=== PATIENT | female | born 1975 | race Caucasian/White ===

== ENCOUNTER 2016-09-26 10:06 | Emergency (ER) | payer SELFPAY ==
[2016-09-26 13:41] VITALS: BP 125/80
--- NOTE | 2016-09-27 00:19 | Diagnostic Imaging Report ---
[facility] [address] [facility].[address] [address] ~ ~ ~ ~ Report Submission Date: Sep 26, 2016 11:53:42 AM CIRCULATING NURSE Patient ~ Study Name: NIKHIL RIVERA ~ Date: Sep 26, 2016 11:39:46 AM CIRCULATING NURSE ~ Modality Type: CR Gender: F ~ Description: SPINE : 77 ~ Institution: [facility] Physician: AMBER JARAMILLO ~ ~ ~ ~ Lumbar spine 3 views Clinical history: Back pain Comparison: October 06, 2012 Technique AP lateral cone down lumbosacral junction Findings: The disc and vertebral body height are normal. No fracture is identified. The sacrum is unremarkable. The normal lumbar lordotic curve is straightened. Surgical clips are present in the right upper quadrant of the abdomen. Impression: Straightening of the normal lumbar lordotic curve suggesting muscle spasm stable from the previous radiographs No acute lumbar spine pathology ~ Electronically signed on Sep 26, 2016 11:53:42 AM CIRCULATING NURSE by: Quinn GOODSON
--- NOTE | 2016-09-27 03:30 | ED Physician Documentation ---
Low Back Pain - HISTORIAN Historian: patient - HPI Stated Complaint: low back pain after lifting a box at work Chief Complaint: Low Back Pain/ Injury Additional Information: lifted box, felt pop Onset: days ago (3) Duration: continues in ED Recent Injury: Yes Context: lifting Where: work Other Injuries: other (none) Severity: moderate Quality: sharp Front/Back of Body, Lg (Color): 1 - pain Worsened By:: movement to RT flexion, movement to LT flexion Relieved By: remaining still Further Comments: no - ROS CONST: no problems CVS/RESP: none EYES/ENT: none MS/SKIN/LYMPH: leg pain Neuro/Psych: none GI/: denies: abdominal pain, black stools - PAST HX Past History: other (hypothyroidism) Surgeries/Procedures: BTL Immunizations: referred to PCP Allergies/Adverse Reactions: Allergies Allergy/AdvReac Type Severity Reaction Status Date / Time sulfamethoxazole Allergy Verified 09/26/16 13:42 [From Bactrim] trimethoprim [From Bactrim] Allergy Verified 09/26/16 13:42 - SOCIAL HX Smoking History: non-smoker Alcohol Use: none Drug Use: none - FAMILY HX Family History: no significant history - VITAL SIGNS Vital Signs: Vital Signs Temp Pulse Resp BP Pulse Ox 97.9 F 76 18 125/80 100 09/26/16 13:34 09/26/16 13:34 09/26/16 13:34 09/26/16 13:34 09/26/16 13:34 - REVIEWED ASSESSMENTS Nursing Assessment Reviewed: Yes Vitals Reviewed: Yes Progress - Results/Orders Results/Orders: L-spine x-ray ordered - Progress Progress: pt. stable entire time in er Critical Care Note - Critical Care Note Total Time (mins): 0 ED Results Lab/Radiology - Lab Results Lab Results: none ordered - Radiology Radiology Impressions: x-ray l-spine pos for spasm/straightening - Orders Orders: ED Orders Category Date Time Status L SPINE 2 OR 3 VIEWS [RAD] Stat Exams 09/26/16 Completed Low Back Pain/Injury - Physical Exam General Appearance: alert, moderate distress EENT: eye inspection normal, ENT inspection normal, pharynx normal, no signs of dehydration, SHASHA, no nystagmus, TM's nml Neck: non-tender, painless ROM, trachea midline Resp/CVS: chest non-tender, breath sounds nml, heart sounds nml, no resp. distress, lungs clear, reg. rate & rhythm Abdomen: non-tender, no organomegaly, no pulsatile mass Back: vertebral point-tendernes (L4,5), CVA tenderness (lumbar area) Straight Leg Raising: Positive Left, Positive Right Neuro/Psych: oriented x3, motor nml, sensation nml, bilat. doriflexion nml, reflexes nml Skin: warm/dry, normal color Extremities: non-tender, normal range of motion, no evidence of injury, no edema Discharge Clincal Impression: Lumbar strain Qualifiers: Encounter type: initial encounter Qualified Code(s): S39.012A - Strain of muscle, fascia and tendon of lower back, initial encounter Referrals: Kristin Conway MD [Primary Care Provider] - 2 Days Comments: discharged home with scripts Condition: Stable Disposition: 01 HOME, SELF-CARE Decision to Admit: NO Decision Time: 13:30
== END 2016-09-26 12:10 | disposition home or self-care (01) ==
LOC: ED 10:06
DX: S39.012A Strain of muscle, fascia and tendon of lower back, initial encounter (principal); X50.1XXA Overexertion from prolonged static or awkward postures, initial encounter; Y99.0 Civilian activity done for income or pay; Y93.9 Activity, unspecified
CPT/HCPCS: 72100; 99283

== ENCOUNTER 2016-10-07 10:35 | Outpatient (CLI) | payer OTHER ==
[2016-10-07 11:05] LABS: BASOPHILS % 0.2 (0.0-1.5); EOSINOPHILS % 2.8 % (0.0-6.8); LYMPHOCYTES # 1.6 # k/uL (0.6-4.0); MEAN CORPUSCULAR HEMOGLOBIN 30.2 pg (28.0-34.0); MONOCYTES # 0.3 # k/uL (0.0-0.9); MONOCYTES % 3.9 % (0.0-11.0); NEUTROPHILS # 4.5 # k/uL (1.4-7.7)
== END 2016-10-07 10:45 ==
LOC: LAB 10:35
PROVIDERS: ATTEND Family Medicine
DX: E03.9 Hypothyroidism, unspecified (principal); R53.83 Other fatigue
CPT/HCPCS: 36415; 80048; 84443; 85025

== ENCOUNTER → 2017-03-20 | Outpatient (CLI) | payer OTHER ==
--- NOTE | 2017-03-20 15:42 | Diagnostic Imaging Report ---
ANKIT LEAL [facility] [address] [facility] [address] [address] Report Submission Date: Mar 20, 2017 3:37:23 PM CDT Patient Study Name: NIKHIL RIVERA Date: Mar 20, 2017 2:53:42 PM CDT Modality Type: CR Gender: F Description: SPINE : 77 Institution: [facility] Physician: ANKIT LEAL Examination: Cervical spine History: Neck discomfort Comparison exams: None available Findings: 3 views of the cervical spine demonstrate normal height and alignment. No anterior compression. No abnormal listhesis. Few early anterior osteophytes. No odontoid abnormality. No prevertebral abnormality Impression: No acute osseous process. Electronically signed on Mar 20, 2017 3:37:23 PM CDT by: Irving GOODSON
== END ==
LOC: RAD 14:29
PROVIDERS: ATTEND Physician Assistant
DX: M54.2 Cervicalgia (principal)
CPT/HCPCS: 72040

== ENCOUNTER 2017-06-01 13:12 | Outpatient (CLI) | payer OTHER | END 2017-06-01 13:13 | LOC: LAB 13:12 | PROVIDERS: ATTEND Family Medicine | DX: E03.9 Hypothyroidism, unspecified (principal) | CPT/HCPCS: 36415; 84443 ==

== ENCOUNTER 2018-06-18 14:45 | Outpatient (CLI) | payer OTHER | END 2018-06-18 14:46 | LOC: LABRHC 14:45 | PROVIDERS: ATTEND Physician Assistant | DX: R30.0 Dysuria (principal) | CPT/HCPCS: 87086; 87186 ==

== ENCOUNTER 2018-06-28 13:51 | Outpatient (CLI) | payer OTHER | END 2018-06-28 13:53 | LOC: LAB 13:51 | PROVIDERS: ATTEND Family Medicine | DX: E03.9 Hypothyroidism, unspecified (principal) | CPT/HCPCS: 36415; 84439; 84443; 84481 ==